=== PATIENT | female | born 1935 | race Caucasian/White ===

== ENCOUNTER 2016-10-18 08:56 | Emergency (ER) | payer MEDICARE ==
[2016-10-18] MEDS ORDERED: Sodium Chloride 0.9% 10 ML Syringe FLUSH PRN (09:16)
--- NOTE | 2016-10-18 09:17 | EDM.PDOC ---
ED HPI GENERAL MEDICAL PROBLEM - General Chief Complaint: Cardiovascular Problem Stated Complaint: rt arm numbness Time Seen by Provider: 10/18/16 09:05 Source of Information: Reports: Patient, Old Records History Limitations: Reports: No Limitations - History of Present Illness INITIAL COMMENTS - FREE TEXT/NARRATIVE: 81 yo female here with R arm pain since 0400h today that woke her up in the night. She took Aspirin 325 mg at that time. Has a pHx of a NC that was tx'd in [place]. Has mild SOB today, but no nausea or diaphoresis. Her fingertips on the R are numb as well. No TA. Takes all her meds at night. Comes from home today. Onset: Today Onset Date: 10/18/16 Onset Time: 04:00 Duration: Hour(s): Location: Reports: Upper Extremity, Right Quality: Reports: Dull Severity: Mild Improves with: Reports: None Worsens with: Reports: None Context: Reports: Other (Hx of CAD) Associated Symptoms: Reports: Shortness of Breath (mild) Treatments SHADE [employer]KER: Reports: Aspirin Right Arm Pain Score (Numeric/FACES): 7 - Related Data Allergies Allergy/AdvReac Type Severity Reaction Status Date / Time cefdinir Allergy Itching Verified 03/21/16 09:55 lisinopril AdvReac Cough Verified 03/21/16 09:55 Sgbdyky-Gsa-Osk Reductase AdvReac Muscle Verified 03/21/16 09:55 Inhibitor Weakness Home Meds: Home Meds Aspirin [Ecotrin] 325 mg PO DAILY 04/25/14 [History] Calcium Carb/Vit D3/Minerals [Calcium-Vit D-Minerals Chew Tb] 10 meq PO ASDIRECTED PRN 04/25/14 [History] Furosemide [Lasix] 20 mg PO DAILY PRN 04/25/14 [History] Ibuprofen [Advil] 800 mg PO Q6H PRN 04/25/14 [History] Losartan [Cozaar] 100 mg PO DAILY 04/25/14 [History] Metoprolol Succinate [Toprol XL] 0.5 tab PO DAILY 04/25/14 [History] Multivitamin [Multivitamins] 1 each PO DAILY 04/25/14 [History] Hancock-3/DHA/Epa/Fish Oil [Hancock-3 Fish Oil 1,200 MG Sfgl] 1,200 mg PO ASDIRECTED 04/25/14 [History] Past Medical History Cardiovascular History: Reports: Hypertension, Other (See Below) Other Cardiovascular History: HEART ATTACK IN 2007 Hematologic History: Reports: Hemochromatosis - Infectious Disease History Infectious Disease History: Reports: Chicken Pox, Measles, Mumps - Past Surgical History GI Surgical History: Reports: Cholecystectomy, Hernia Repair/Other, Other (See Below) Social & Family History - Tobacco Use Smoking Status *Q: Former Smoker Years of Tobacco use: 10 Used Tobacco, but Quit: Yes - Caffeine Use Caffeine Use: Reports: Coffee - Alcohol Use Days Per Week of Alcohol Use: 0 Number of Drinks Per Day: 0 Total Drinks Per Week: 0 - Recreational Drug Use Recreational Drug Use: No Drug Use in Last 12 Months: No ED ROS GENERAL - Review of Systems Review Of Systems: See Below Constitutional: Reports: No Symptoms HEENT: Reports: No Symptoms Respiratory: Reports: Shortness of Breath (mild) Cardiovascular: Reports: Edema (chronic LE edema below the knees.). Denies: Chest Pain, Claudication, Lightheadedness, Orthopnea, Palpitations GI/Abdominal: Reports: No Symptoms : Reports: No Symptoms Musculoskeletal: Reports: Arm Pain (Right) Skin: Reports: No Symptoms Neurological: Reports: Numbness (R fingertips) Psychiatric: Reports: No Symptoms ED EXAM, GENERAL - Physical Exam Exam: See Below Exam Limited By: No Limitations General Appearance: Alert, WD/WN, No Apparent Distress, Obese Eye Exam: Bilateral Eye: EOMI, Normal Inspection, PERRL Ears: Normal External Exam, Normal Canal, Hearing Grossly Normal Ear Exam: Bilateral Ear: Auricle Normal, Canal Normal Nose: Normal Inspection, Normal Mucosa, No Blood Throat/Mouth: Normal Inspection, Normal Lips, Normal Oropharynx, Normal Voice, No Airway Compromise Head: Atraumatic, Normocephalic Neck: Normal Inspection, Supple, Non-Tender Respiratory/Chest: No Respiratory Distress, Lungs Clear, Normal Breath Sounds, No Accessory Muscle Use Cardiovascular: Regular Rate, Rhythm GI/Abdominal: Normal Bowel Sounds, Soft, Non-Tender, No Distention Back Exam: Normal Inspection, Full Range of Motion. No: CVA Tenderness (R), CVA Tenderness (L) Extremities: Normal Inspection, Normal Range of Motion, Non-Tender, Pedal Edema (1+ pitting edema to both legs below the knees.) Neurological: Alert, Oriented, CN II-XII Intact, Normal Cognition, No Motor/ Sensory Deficits, Other (Strength in the R upper extremity is equal to that in the left UE.) Psychiatric: Normal Affect, Normal Mood Skin Exam: Warm, Dry, Intact, Erythema (To a portion of both legs below the knees, not hot to touch.) EKG INTERPRETATION EKG Date: 10/18/16 Time: 09:05 Rhythm: NSR Rate (Beats/Min): 54 [place]: Normal P-Wave: Present QRS: Normal ST-T: Normal QT: Normal Comparison: NA - No Prior EKG Course - Vital Signs Text/Narrative:: Saline lock, gabapentin 200 mg po, NTG 0.4 mg SL x 2 without any change in sx' s. Last Recorded V/S: Last Vital Signs Temp 36.9 C 10/18/16 09:19 Pulse 47 L 10/18/16 10:30 Resp 16 10/18/16 11:23 BP 114/60 10/18/16 11:23 Pulse Ox 100 10/18/16 11:23 - Orders/Labs/Meds Orders: Active Orders 24 hr Category Date Time Status Cardiac Monitoring [RC] .As Directed Care 10/18/16 09:08 Active EKG Documentation Completion [RC] ASDIRECTED Care 10/18/16 09:08 Active CBC W/O DIFF,HEMOGRAM [HEME] Stat Lab 10/18/16 09:30 Received Sodium Chloride 0.9% [Saline Flush] Med 10/18/16 09:16 Active 10 ml FLUSH ASDIRECTED PRN Saline Lock Insert [OM.PC] Routine Oth 10/18/16 09:16 Ordered EKG 12 Lead [EK] Routine Ther 10/18/16 09:08 Ordered Medication Orders Sodium Chloride (Saline Flush) 10 ml FLUSH ASDIRECTED PRN PRN Reason: Keep Vein Open Labs: Laboratory Tests 10/18/16 10/18/16 10/18/16 Range/Units 09:30 09:30 10:25 Sodium 136 (135-145) mmol/L Potassium 4.0 (3.5-5.3) mmol/L Chloride 105 (100-110) mmol/L Carbon Dioxide 27 (23-29) mmol/L BUN 18 (8-23) mg/dL Creatinine 0.8 (0.6-1.3) mg/dL Est Cr Clr Drug Dosing 52.72 mL/min Estimated GFR (MDRD) > 60 (>60) BUN/Creatinine Ratio 22.5 H (9-20) Glucose 106 (80-116) mg/dL Calcium 8.9 (8.6-10.2) mg/dL Troponin I < 0.01 L (0.02-0.06) NG/ML Urine Color Yellow (YELLOW) Urine Appearance Cloudy (CLEAR) Urine pH 7.0 H (5.0-6.5) Ur Specific [place] 1.010 (1.010-1.025) Urine Protein Negative (NEGATIVE) mg/dL Urine Glucose (UA) Normal (NEGATIVE) mg/dL Urine Ketones Negative (NEGATIVE) mg/dL Urine Occult Blood Negative (NEGATIVE) Urine Nitrite Positive H (NEGATIVE) Urine Bilirubin Negative (NEGATIVE) Urine Urobilinogen Normal (NEGATIVE) mg/dL Ur Leukocyte Esterase Negative (NEGATIVE) Urine RBC 0-5 (0) Urine WBC 5-10 (0) Ur Squamous Epith Cells Rare (NS,R,O) Urine Bacteria Many H (NS) Meds: Medications Generic Name Dose Route Start Last Admin Trade Name Freq PRN Reason Stop Dose Admin Sodium Chloride 10 ml 10/18/16 09:16 Saline Flush FLUSH ASDIRECTED PRN Keep Vein Open Discontinued Medications Generic Name Dose Route Start Last Admin Trade Name Freq PRN Reason Stop Dose Admin Gabapentin 200 mg 10/18/16 10:10 10/18/16 10:34 Neurontin PO 10/18/16 10:11 200 mg ONETIME ONE Administration Nitroglycerin 0.4 mg 10/18/16 11:09 10/18/16 11:17 Nitrostat SL 10/18/16 11:20 0.4 mg Q5M PRN Administration Chest Pain Departure - Departure Time of Disposition: 11:35 Disposition: Home, Self-Care 01 Condition: Fair Clinical Impression: Arm pain, right HTN (hypertension) Qualifiers: Hypertension type: essential hypertension Qualified Code(s): I10 - Essential ( primary) hypertension Forms: ED Department Discharge - My Orders Last 24 Hours: My Active Orders 10/18/16 09:08 Cardiac Monitoring [RC] .As Directed EKG Documentation Completion [RC] ASDIRECTED EKG 12 Lead [EK] Routine 10/18/16 09:16 Sodium Chloride 0.9% [Saline Flush] 10 ml FLUSH ASDIRECTED PRN Saline Lock Insert [OM.PC] Routine 10/18/16 09:30 CBC W/O DIFF,HEMOGRAM [HEME] Stat - Assessment/Plan Last 24 Hours: My Active Orders 10/18/16 09:08 Cardiac Monitoring [RC] .As Directed EKG Documentation Completion [RC] ASDIRECTED EKG 12 Lead [EK] Routine 10/18/16 09:16 Sodium Chloride 0.9% [Saline Flush] 10 ml FLUSH ASDIRECTED PRN Saline Lock Insert [OM.PC] Routine 10/18/16 09:30 CBC W/O DIFF,HEMOGRAM [HEME] Stat
[2016-10-18] MEDS ORDERED: Gabapentin 100 MG Cap PO ONE (10:10)
[2016-10-18] MEDS: Nitroglycerin 0.4 MG Tab.SL SL PRN ×2 (11:12→11:17)
[2016-10-18 12:07] VITALS: BP 150/55
== END 2016-10-18 12:10 | disposition home or self-care (01) ==
LOC: FB.ED 08:56
DX: M79.601 Pain in right arm (principal); I10 Essential (primary) hypertension; I25.2 Old myocardial infarction; I25.10 Atherosclerotic heart disease of native coronary artery without angina pectoris; Z79.82 Long term (current) use of aspirin; Z79.899 Other long term (current) drug therapy; Z90.49 Acquired absence of other specified parts of digestive tract; Z88.8 Allergy status to other drugs, medicaments and biological substances; Z87.891 Personal history of nicotine dependence
CPT/HCPCS: 80048; 81001; 84484; 85027; 93005; 99283; 99285; A9270

== ENCOUNTER 2023-11-16 10:49 | Inpatient (IN) | payer MEDICARE ==
[2023-11-16] MEDS ORDERED: Polyethylene Glycol 3350 Powder 17 GM Packet PO PRN (12:03)
[2023-11-16] MEDS: Acetaminophen 325 MG Tab PO PRN (13:46)
[2023-11-16] MEDS ORDERED: Warfarin Sliding Scale PO SCH (16:15)
[2023-11-16] MEDS: Warfarin 2.5 MG Tab PO ONE (17:14)
[2023-11-16] MEDS: oxyCODONE 5 MG Tab PO PRN (21:42)
[2023-11-16] MEDS: Metoprolol Succinate 25 MG Tab.ER PO SCH (21:42)
[2023-11-16] MEDS: Oxybutynin 5 MG Tab PO SCH (21:42)
[2023-11-17] MEDS: Levothyroxine 25 MCG Tab PO SCH (05:34)
[2023-11-17 07:06] LABS: INR 1.92 (1.00-1.24); PROTHROMBIN TIME 18.9 sec (9.0-11.1)
[2023-11-17] MEDS: Spironolactone 25 MG Tab PO SCH (08:11)
[2023-11-17] MEDS: Aspirin 81 MG Tab.Chew PO SCH (08:11)
[2023-11-17] MEDS: Losartan 25 MG Tab PO SCH (08:12)
[2023-11-17] MEDS: Ezetimibe 10 MG Tab PO SCH (08:12)
[2023-11-17] MEDS: Multivitamin Tab PO SCH (08:12)
[2023-11-17] MEDS: Warfarin 5 MG Tab PO ONE (15:21)
[2023-11-18 07:00] LABS: INR 1.86 (1.00-1.24); PROTHROMBIN TIME 18.4 sec (9.0-11.1)
[2023-11-18] MEDS: Iopamidol 755 Mg/ML 100 ML Bottle IV SCH (16:21)
[2023-11-18] MEDS: Warfarin 2.5 MG Tab PO ONE ×2 (19:03→20:19)
[2023-11-19] MEDS: Alendronate 70 MG Tab PO SCH (06:22)
[2023-11-19 06:52] LABS: INR 1.79 (1.00-1.24); PROTHROMBIN TIME 17.8 sec (9.0-11.1)
[2023-11-19] MEDS: Warfarin 2.5 MG Tab PO ONE (15:27)
[2023-11-20 06:44] LABS: INR 2.29 (1.00-1.24); PROTHROMBIN TIME 22.3 sec (9.0-11.1)
[2023-11-20] MEDS: Warfarin 2.5 MG, Warfarin 5 MG PO ONE (17:20)
[2023-11-21 06:56] LABS: INR 2.75 (1.00-1.24); PROTHROMBIN TIME 26.3 sec (9.0-11.1)
[2023-11-21] MEDS: Acetaminophen 325 MG Tab PO SCH (10:37)
[2023-11-21] MEDS: Warfarin 2.5 MG Tab PO ONE (16:10)
[2023-11-21] MEDS: Furosemide 20 MG/2 ML VIAL IVPUSH ONE (17:47)
[2023-11-22 06:49] LABS: INR 2.66 (1.00-1.24); PROTHROMBIN TIME 25.5 sec (9.0-11.1)
[2023-11-22] MEDS: Warfarin 5 MG Tab PO ONE (16:06)
[2023-11-23 06:31] LABS: INR 2.3 (1.00-1.24); PROTHROMBIN TIME 22.4 sec (9.0-11.1)
[2023-11-23] MEDS: Furosemide 20 MG Tab PO ONE (11:38)
[2023-11-23] MEDS: Warfarin 5 MG Tab PO ONE (15:24)
[2023-11-24 06:18] LABS: INR 2.32 (1.00-1.24); PROTHROMBIN TIME 22.5 sec (9.0-11.1)
[2023-11-24 12:54] VITALS: BP 103/55; PULSE 71
== END 2023-11-24 10:31 | disposition home or self-care (01) | DRG 559 ==
LOC: FB.MS 11:41
PROVIDERS: ADMIT Family Medicine; ATTEND Family Medicine
DX: Z47.1 Aftercare following joint replacement surgery (principal); U07.1 COVID-19; I50.42 Chronic combined systolic (congestive) and diastolic (congestive) heart failure; Z66 Do not resuscitate; E78.5 Hyperlipidemia, unspecified; I48.0 Paroxysmal atrial fibrillation; I25.10 Atherosclerotic heart disease of native coronary artery without angina pectoris; I11.0 Hypertensive heart disease with heart failure; I25.2 Old myocardial infarction; E66.9 Obesity, unspecified; K59.09 Other constipation; M19.90 Unspecified osteoarthritis, unspecified site; G43.909 Migraine, unspecified, not intractable, without status migrainosus; Z96.641 Presence of right artificial hip joint; Z86.73 Personal history of transient ischemic attack (TIA), and cerebral infarction without residual deficits; Z87.19 Personal history of other diseases of the digestive system; Z88.8 Allergy status to other drugs, medicaments and biological substances; Z79.02 Long term (current) use of antithrombotics/antiplatelets; Z79.899 Other long term (current) drug therapy; Z79.51 Long term (current) use of inhaled steroids; Z68.29 Body mass index [BMI] 29.0-29.9, adult; Z87.81 Personal history of (healed) traumatic fracture; Z90.89 Acquired absence of other organs; Z90.49 Acquired absence of other specified parts of digestive tract; Z90.710 Acquired absence of both cervix and uterus; Z98.890 Other specified postprocedural states; Z90.722 Acquired absence of ovaries, bilateral; Z90.79 Acquired absence of other genital organ(s); S72.001D Fracture of unspecified part of neck of right femur, subsequent encounter for closed fracture with routine healing; Z79.01 Long term (current) use of anticoagulants
CPT/HCPCS: 36415; 71275; 84484; 85610; 93010; 97110-GP; 97116-GP; 97161-GP; 97165-GO; 97530-GO; 97530-GP; 97535-GO; 99305; 99308; 99315; A9270-GY; J1940; Q9967